=== PATIENT | female | born 1950 | race Caucasian/White ===

== ENCOUNTER 2019-05-21 23:59 | Emergency (ER) | payer MEDICARE, OTHER ==
--- NOTE | 2019-05-22 00:15 | ED ---
Syncope/Near Syncope - HPI Summary HPI Summary: This pt is a 68 Y/O F presenting to [facility] with a CC of a nosebleed and a syncopal episode. She states that she hit her face yesterday at 1930 during a fall where she did not lose consciousness. She states that she fell asleep for 4 -5 hours after the event. Today she was walking around and doing multiple errands. She states that her swelling around her L eye was reducing. She states that she had nausea throughout the day. Her nosebleed began prior to arrival and states that the bleeding would not stop. She states that her mouth hurts and is described as an ache. She also reports a headache that has been constant since her first fall that is rated a 4/10 in severity. She had a syncopal episode during admission to the Emergency department. Her episode was witnessed by hospital staff and EMS. Her syncope resolved by the time she was moved into an ER. She denies any vomiting, SOB, CP, visual changes, and fevers. She has no aggravating or alleviating factors. She states that she is currently on BP medications. She states that she does not take blood thinners. She states that she has a PMHx of HTN. She denies any alcohol or drugs today. - History Of Current Complaint Chief Complaint: EDSyncope Time Seen by Provider: 05/22/19 00:12 Hx Obtained From: Patient Onset/Duration: Sudden Onset, Resolved Timing: Frequency Of Episodes - 1 episode, resolved when moved into a room Context: Witnessed Activity At Onset: Other - standing Associated Head Trauma: Yes Aggravating Factor(s): Nothing Alleviating Factor(s): Nothing Associated Signs And Symptoms: Negative - vomiting, SOB, CP, visual changes, and fevers, Headache, Other - nausea - Allergies/Home Medications Allergies/Adverse Reactions: Allergies Allergy/AdvReac Type Severity Reaction Status Date / Time MS Morphine [Morphine] AdvReac hypotension Verified 05/22/19 00:06 Home Medications: Home Medications Acetaminophen TAB* [Tylenol TAB*] 650 mg PO Q4H PRN 03/04/13 [History Confirmed 05/22/19] Ibuprofen TAB* [Motrin TAB*] 400 mg PO Q6H PRN 03/04/13 [History Confirmed 05/21] Levothyroxine TAB* [Synthroid 25 MCG TAB*] 50 mcg PO 0800 03/04/13 [History Confirmed 05/22/19] lamoTRIgine TAB(*) [Lamictal TAB(*)] 100 mg PO BEDTIME 03/04/13 [History Confirmed 05/22/19] Bisoprolol/Hydrochlorothiazide [Bisoprolol-Hctz 10-6.25 mg Tab] 1 each PO DAILY 05/22/19 [History Confirmed 05/22/19] Valproic Acid 2 tab PO DAILY 05/22/19 [History Confirmed 05/22/19] PMH/Surg Hx/FS Hx/Imm Hx Previously Healthy: Yes Endocrine/Hematology History: Reports: Hx Thyroid Disease Denies: Hx Diabetes Cardiovascular History: Reports: Hx Hypertension Respiratory History: Denies: Hx Asthma, Hx Chronic Obstructive Pulmonary Disease (COPD) GI History: Denies: Hx Ulcer - Cancer History Hx Chemotherapy: No Hx Radiation Therapy: No - Surgical History Surgical History: Yes Surgery Procedure, Year, and Place: csection. hernia repair. microlaminectomy L5-s1. cervical fusion. right hand surgery fracture repair post fall - Immunization History Immunizations Up to Date: Yes Infectious Disease History: Unable to Obtain/Confirm Infectious Disease History: Denies: Hx Clostridium Difficile, Hx Hepatitis, Hx Human Immunodeficiency Virus (HIV), Hx of Known/Suspected MRSA, Hx Shingles, Hx Tuberculosis, Traveled Outside the [place] in Last 30 Days - Social History Occupation: Retired Lives: Alone Alcohol Use: Occasionally Hx Substance Use: No Substance Use Type: Reports: None Hx Tobacco Use: No Smoking Status (MU): Never Smoked Tobacco Review of Systems Negative: Fever Eyes: Other - bruising around L periorbital space Positive: Epistaxis, Dental Pain Negative: Chest Pain Negative: Shortness Of Breath Positive: Nausea. Negative: Vomiting Positive: Headache, Syncope All Other Systems Reviewed And Are Negative: Yes Physical Exam - Summary Physical Exam Summary: General: Well-developed, elderly female. No acute distress. Mildlt-ill appearing HEENT: Normocephalic, Atraumatic. no obvious acute bleeding Eyes: Conjuctiva normal, PERRL. Significant ecchymosis around the L eye and upper lip. Ears: TMs within normal limits. Nares: (-) discharge, Swollen erythematous nose with dried blood in the nares Oropharynx: Clear, mucous membranes moist, (-) exudates. Neck: Soft, FROM, (-) lymphadenopathy, (-) thyromegaly, (-) JVD. Cardiovascular: Normal sinus rhythm, (-) murmur. Lungs: decreased breath sounds bilaterally. Diffuse wheezes throughout, (-) rales, (-) rhonchi. Abdomen: Soft, non-tender, non-distended, (-) organomegaly, normal bowel sounds. Back: (-) CVA tenderness Extremities: No edema. Skin: Warm, dry, (-) rash. Neuro: Alert and oriented x3, no focal deficits. Psychiatric: Mood normal, affect normal. Triage Information Reviewed: Yes Vital Signs On Initial Exam: Initial Vitals Temp Pulse Resp BP Pulse Ox 95.3 F 57 21 154/94 97 05/22/19 00:03 05/22/19 00:03 05/22/19 00:03 05/22/19 00:03 05/22/19 00:03 Vital Signs Reviewed: Yes Procedures - Sedation Patient Received Moderate/Deep Sedation with Procedure: No Diagnostics - Vital Signs Vital Signs Temp Pulse Resp BP Pulse Ox 05/22/19 00:03 95.3 F 57 21 154/94 97 - Laboratory Result Diagrams: 05/22/19 00:35 05/22/19 00:35 Lab Statement: Any lab studies that have been ordered have been reviewed, and results considered in the medical decision making process. - CT Brain CT CT Interpretation Completed By: Radiologist Summary of CT Findings: 1. No acute intracranial hemorrhage or acute territorial type infarct. 2. There are periventricular foci of white matter hypodensity, likely. representing small vessel ischemic disease in a patient this age. 3. Mild atrophy. 4. Paranasal sinus disease. If the patient has facial trauma, a facial CT is. recommended. ED physician has reviewed this report. - EKG 0030 Cardiac Rate: Bradycardia - 53 BPM EKG Rhythm: Sinus Bradycardia ST Segment: Normal Ectopy: None Summary of EKG Findings: An EKG at 0028 reveals sinus bradycardia at 53 BPM, nml axis, nml intervals. No STEMI. No acute changes. Interpreted by Dr. Dodge at 0030 05/22/2019. Re-Evaluation - Re-Evaluation First Eval Re-Evaluation Time: 03:38 Change: Improved Comment: Syncope and epistaxis has resolved. Course/Dx Course Of Treatment: 68-year-old female presents from home with bloody nose. Patient states she fell last night. Sustained injury to the face. She states she tripped on something. Has ecchymosis under her left eye and upper mouth. She states tonight while she was doing errands she started developing nosebleed that will stop. She denies any dizziness or lightheadedness. Does have a mild headache. No visual changes. No nausea vomiting at this time. Shortly after arrival patient had an episode of syncope. after a Brief interval patient was able to respond after that. Patient has ecchymosis under the left eye upper mouth. Swelling in her nose. No active bleeding. No neurological deficits on exam. Normal strength and sensation in all extremities. Workup demonstrates a normal brain CT. Discharged home. Ice and Tylenol as needed. Follow-up up with PCP. Follow up sooner for any worsening symptoms. - Diagnoses Provider Diagnoses: Epistaxis, Syncope, Fall, Facial trauma Discharge ED - Sign-Out/Discharge Documenting (check all that apply): Patient Departure - discharge - Discharge Plan Condition: Good Disposition: HOME Patient Education Materials: Nosebleed (ED), Black Eye (ED), Syncope (ED), Fall Prevention for Older Adults (ED) Referrals: Emily Kovacs MD [Primary Care Provider] - 2 Days Additional Instructions: PLEASE FOLLOW UP WITH YOUR PRIMARY CARE PHYSICIAN IN 1-3 DAYS. RETURN TO THE EMERGENCY DEPARTMENT FOR ANY NEW OR WORSENING SYMPTOMS. - Billing Disposition and Condition Condition: GOOD Disposition: Home - Attestation Statements Document Initiated by Paulina: Yes Documenting Scribe: Jacky Mesa Provider For Whom Paulina is Documenting (Include Credential): Gisele Dodge MD Scribe Attestation: Jacky Pompa scrflako for Gisele Dodge MD on 05/23/19 at 0452. Scribe Documentation Reviewed: Yes Provider Attestation: The documentation as recorded by the Jacky schulte accurately reflects the service I personally performed and the decisions made by , Gisele Dodge MD Status of Scribe Document: Viewed
[2019-05-22 01:45] LABS: ABS Basophils 0.1 10^3/ul (0-0.2); ABS Eosinophils 0.1 10^3/ul (0-0.6); ABS Lymphocytes 2.1 10^3/ul (1.0-4.8); ABS Monocytes 0.5 10^3/ul (0-0.8); ABS Neutrophils 3.6 10^3/ul (1.5-7.7); Eosinophil % 2.1 %; Hematocrit 34 % (35-47); Hemoglobin 11.5 g/dL (12.0-16.0); Lymphocyte % 33.1 %; Mean Corpuscular HGB Conc 34 g/dL (31-36); Mean Corpuscular Hemoglobin 30 pg (27-31); Mean Corpuscular Volume 88 fL (80-97); Mean Platelet Volume 9.5 fL (7.4-10.4); Platelet Count 161 10^3/uL (150-450); Red Blood Count 3.85 10^6 /uL (3.70-4.87); Red Cell Distribution Width 14 % (10-15); White Blood Count 6.4 10^3/uL (3.5-10.8)
[2019-05-22 01:51] LABS: INR 1.01 (0.82-1.09)
[2019-05-22 02:06] LABS: ALT 13 U/L (7-52); AST 20 U/L (13-39); Albumin 3.7 g/dL (3.2-5.2); Albumin/Globulin Ratio 1.5 (1-3); Alkaline Phosphatase 38 U/L (34-104); Anion Gap 7 mmol/L (2-11); BUN/Creatinine Ratio 16.7 (8-20); Blood Urea Nitrogen 14 mg/dL (6-24); CO2 Carbon Dioxide 27 mmol/L (22-32); Calcium 9.2 mg/dL (8.6-10.3); Chloride 105 mmol/L (101-111); EGFR African American 81.8 (>60); EGFR Non-African American 67.6 (>60); Globulin 2.4 g/dL (2-4); Glucose 141 mg/dL (70-100); Potassium 3.4 mmol/L (3.5-5.0); Sodium 139 mmol/L (135-145); Total Protein 6.1 g/dL (6.4-8.9)
[2019-05-22 02:11] LABS: Alcohol < 10 mg/dL (<10)
--- OUTSIDE RECORDS SUMMARY | 2019-05-22 02:23 | XMS REPORT | Continuity of Care Document ---
:1950 External Reference #:[id number] Author Name Becca De Jesus N.P. 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 No Information Available Social History Type Date Description Comments Sex Unknown Tobacco Use Start: Unknown End: Former Cigarette Smoker ETOH Use Rarely consumes alcohol Recreational Drug Use Sporadically uses Marijuana Tobacco Use Start: Unknown End: Patient is a former smoker Smoking Status Reviewed: 05/11/19 Patient is a former smoker Exercise Type/Frequency Exercises rarely Allergies, Adverse Reactions, Alerts Active Allergies Reaction Severity Comments Date Morphine hypotension 03/14/2019 Medications Active Medications SIG Qnty Indications Ordering Date Provider Estradiol 1 tab per day x 2 90tabs Diane Nowak, 03/14/2019 10mcg Tablets weeks, then 1 tab [employer] twice weekly Levothyroxine Sodium 1 by mouth every Unknown day 112mcg Tablets Divalproex Sodium take 5 capsules Unknown 125mg (625mg) by mouth CSDR every morning;take 6 capsules (750mg) by mouth at bedtime Calcium 600/Magnesium every morning Unknown 300/Vitamin D 200-100-33.3mg-mg-Unit Capsules Vitamin D 1 by mouth every Unknown (Cholecalciferol) day 50mcg (2000 Ut) Capsules Ibuprofen one tablet by Unknown 600mg Tablets mouth q6 as needed pain Lamotrigine 1 po qhs for 1 wk Unknown 25mg Tablets then 2 qhs for 1 wk then 3 qhs for 1 wk then 4 qhs Multivitamin Adult 1 by mouth every Unknown day Tablets Bisoprolol Take One Tablet Unknown Fumarate/Hydrochloroth By Mouth Every iazide Day 5-6.25mg Tablets Immunizations Description No Information Available Vital Signs Date Vital Result Comment 05/11/2019 2:01pm Height 64 inches 5'4" Weight 159.00 lb Heart Rate 55 /min BP Systolic 136 mmHg BP Diastolic 82 mmHg Respiratory Rate 16 /min O2 % BldC Oximetry 99 % room air BMI (Body Mass Index) 27.3 kg/m2 03/14/2019 1:24pm Height 64 inches 5'4" Weight 158.00 lb Heart Rate 72 /min BP Systolic 159 mmHg BP Diastolic 92 mmHg O2 % BldC Oximetry 96 % BMI (Body Mass Index) 27.1 kg/m2 Last Menstrual Period [id number] Results Description No Information Available Procedures Description No Information Available Medical Devices Description No Information Available Encounters Type Date Location Provider Dx Diagnosis Office Visit 03/14/2019 [facility] Becca De Jesus N.P. R10.2 Pelvic and 1:00p [facility] perineal pain Assessments Date Code Description Provider 03/14/2019 R10.2 Pelvic and perineal pain Becca De Jesus N.P. Plan of Treatment No Information Available Functional Status Description No Information Available Mental Status Description No Information Available Referrals Refer to Reason for Referral Status Appt Date Belén Sy, PT, OCS Sent [address] [place] [address] [phone]
--- OUTSIDE RECORDS SUMMARY | 2019-05-22 02:23 | XMS REPORT | Summary of Care ---
:1950 Author Organization [facility] Address [address] [place] [address] Care Team Providers Name Role Phone Emily Kovacs Primary Care Provider Reason for Visit Reason Comments Other discuss medications, cardiology and UTI's (not symptomatic at this time ) - UA negative today Encounter Details Date Type Department Care Team Description 03/31/2019 Office Visit [facility] Emily Kovacs MD Long QT interval (Primary Dx); Medicine [address] Bipolar affective disorder, remission status unspecified ([facility]); [address] [place] [address] Atrophic vaginitis; [place] [address] Elevated blood sugar; [phone] History of UTI; Hypertension, unspecified type Allergies Active Allergy Reactions Severity Noted Date Comments Morphine Cardiac Reaction 03/06/2008 documented as of this encounter (statuses as of 03/31/2019) Medications Medication Sig Dispensed Refills Start Date End Date Status Htabpwr-Dcpelpxpa-Mtd Take by mouth DAILY. 0 Active moss D (CALCIUM 500) 500-250-200 MG-MG-UNIT Oral Tab Cholecalciferol 400 Units DAILY. 0 04/14/2017 Active (VITAMIN D3) 2000 units Oral Cap lamotrigine Take 2 Tabs by mouth 0 06/10/2018 Active (LAMICTAL) 25 MG Oral DAILY. TabIndications: Diarrhea, unspecified type levothyroxine TAKE 1 TABLET BEFORE 90 Tab 4 10/26/2018 Active (SYNTHROID) 112 MCG BREAKFAST Oral Tab ESTRADIOL VAGINAL 0.[address] 0.5 1 Tube 3 01/06/2019 Active MG/GM Vaginal Applicatorfuls into CreamIndications: the vagina EVERY 7 Atrophic vaginitis DAYS. Additional information Patient taking differently: 0.5 Applicatorful Vaginal PRN, Reported on 2019 9:13 AM divalproex sodium Take 2 Tabs by 60 Tab 0 02/16/2019 Active (DEPAKOTE) 250 MG Oral mouth TWICE Tab EC DAILY. Multiple TAKE 1 TABLET 90 Tab 4 03/28/2019 Active Vitamins-Minerals DAILY (THEREMS-M) Oral Tab ACETAMINOPHEN PO Take by mouth 0 Active NEEDED. bisoprolol-hydrochloro Take 1 Tab by 90 Tab 3 03/31/2019 03/30/19 Active thiazide (ZIAC) 5-6.25 mouth DAILY. 21 MG Oral Take 1 tablet TabIndications: daily. Hypertension, unspecified type ibuprofen (MOTRIN) 600 Take 1 Tab by 120 Tab 0 07/21/2012 03/31/19 Discontinued MG Oral mouth EVERY 20 (Patient stopped the TabIndications: SIX HOURS medication) Shoulder strain NEEDED for Pain. Multiple Vitamin Oral Take 1 Tab by 90 Tab 5 02/09/2018 03/31/19 Discontinued Tab mouth DAILY. 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 General patient education discussion including: obesity- related excess mortality and is managed by . Pain in joint, lower leg 06/24/2007 05/06/2012 Anxiety state, unspecified 03/31/2007 05/06/2012 Bipolar I disorder, single manic episode 03/31/2007 03/14/2015 documented as of this encounter (statuses as of 03/31/2019) Immunizations Name Administration Dates Next Due Influenza (IM) Preservative Free 01/12/2013, 02/11/2011, 12/30/2008 Influenza Virus Vaccine - Whole 12/17/2006 Influenza Virus Vaccine Pres Free 6-35 12/15/2009 Months TDAP Vaccine 06/19/2011 documented as of this encounter Social History Tobacco Use Types Packs/Day Years Used Date Former Smoker Cigarettes 0.1 20 Smokeless Tobacco: Never Used Comments: smokes 5 cigarettes per day on average Alcohol Use Drinks/Week oz/Week Comments Yes 0 Standard drinks or equivalent 0.0 socially Sex Assigned at Date Recorded Not on file Job Start Date Occupation Industry Not on file Not on file Not on file Travel History Travel Start Travel End No recent travel history available. documented as of this encounter Last Filed Vital Signs Vital Sign Reading Time Taken Comments Blood Pressure 148/104 03/31/2019 1:54 PM EST Pulse 89 03/31/2019 1:54 PM EST Temperature - - Respiratory Rate - - Oxygen Saturation 99% 03/31/2019 1:54 PM EST Inhaled Oxygen Concentration - - Weight 72.6 kg (160 lb) 03/31/2019 1:54 PM EST Height 160 cm (5' 3") 03/31/2019 1:54 PM EST Body Mass Index 28.34 03/31/2019 1:54 PM EST documented in this encounter Patient Instructions Patient InstructionsEmily Kovacs MD - 03/31/2019 1:40 PM ESTWill need repeat of blood sugar in 4-6 months to follow Today start blood pressure medication - Short interval Follow up - 3 weeks documented in this encounter Progress Notes Emily Kovacs MD - 03/31/2019 1:40 PM EST NAME:Lupis Cline 1950: 1950 E[place] Date: 03/31/2019 CC: Chief Complaint Patient presents with Other discuss medications, cardiology and UTI's (not symptomatic at this time) - UA negative today Lupis Cline is a 68-y.o. female 1. Seen by Dr Kumar for her possible long QT but this does not seem to be a problem Echo does not show significant problem - 2. Diastolic elevated consistently - ready to start blood pressure medication- 3. Stress today Trip in electric car - 4. Blood sugar borderline Lab Results Component Value Date GLYCO 6.3 (H) 03/29/2019 GLYCO 6.1 (H) 06/03/2018 GLYCO 6.1 (H) 09/10/2017 Discuss at next office visit! - In a sigala today- Current Outpatient Medications Medication Sig ACETAMINOPHEN PO Take by mouth NEEDED. bisoprolol-hydrochlorothiazide (ZIAC) 5-6.25 MG Oral Tab Take 1 Tab by mouth DAILY. Take 1 tablet daily. Eotzvvb-Qixxgeyze-Stliowl D (CALCIUM 500) 500-250-200 MG-MG-UNIT Oral Tab Take by mouth DAILY. Cholecalciferol (VITAMIN D3) 2000 units Oral Cap 400 Units DAILY. divalproex sodium (DEPAKOTE) 250 MG Oral Tab EC Take 2 Tabs by mouth TWICE DAILY. ESTRADIOL VAGINAL 0.1 MG/GM Vaginal Cream Place 0.5 Applicatorfuls into the vagina EVERY 7 DAYS. (Patient taking differently: Place 0.5 Applicatorfuls into the vagina NEEDED.) lamotrigine (LAMICTAL) 25 MG Oral Tab Take 2 Tabs by mouth DAILY. levothyroxine (SYNTHROID) 112 MCG Oral Tab TAKE 1 TABLET BEFORE BREAKFAST Multiple Vitamins-Minerals (THEREMS-M) Oral Tab TAKE 1 TABLET DAILY No current facility-administered medications for this visit. 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 No bruising/ bleeding. No neurological complaints . No insomnia.+ . Social History Tobacco Use Smoking status: Former Smoker Packs/day: 0.10 Years: 20.00 Pack years: 2.00 Types: Cigarettes Smokeless tobacco: Never Used Tobacco comment: smokes 5 cigarettes per day on average Substance Use Topics Alcohol use: Yes Alcohol/week: 0.0 standard drinks Comment: socially Drug use: No Results for orders placed or performed in visit on 03/31/19 URINE DIP MANUAL (AMB POCT) Result Value Ref Range URINE GLUCOSE (POCT) Negative Negative mg/dl URINE BILIRUBIN (POCT) Negative Negative Urine Ketones (POCT) Negative Negative URINE SPECIFIC GRAVITY (POCT) 1.015 1.005 - 1.030 URINE BLOOD (POCT) Negative Negative URINE PH (POCT) 7.0 5.0 - 8.0 URINE PROTEIN (POCT) Negative Negative mg/dl URINE UROBILINOGEN (POCT) 0.2 0.2 - 1.0 mg/dl URINE NITRITES (POCT) Negative Negative URINE LEUKOCYTES (POCT) Negative Negative Cells/uL OBJECTIVE: BP (!) 148/104 | Pulse 89 | Ht 5' 3" (1.6 m) | Wt 160 lb (72.6 kg) | SpO2 99 % | BMI 28.34 kg/m . A/P ICD-9-CM ICD-10-CM 1. Long QT interval 794.31 R94.31 2. Bipolar affective disorder, remission status unspecified (HCC) 296.80 F31.9 3. Atrophic vaginitis 627.3 N95.2 4. Elevated blood sugar 790.29 R73.9 5. History of UTI V13.02 Z87.440 URINE DIP MANUAL (AMB POCT) 6. Hypertension, unspecified type 401.9 I10 bisoprolol-hydrochlorothiazide (ZIAC ) 5-6.25 MG Oral Tab There are no Patient Instructions on file for this visit. AUTHOR: Emily Kovacs MD 14:37 03/31/2019 documented in this encounter Plan of Treatment Date Type Specialty Care Team Description 04/21/2019 Appointment Radiology 05/02/2019 Office Visit Cardiology Skye Pineda PA [address] [place] [address] [phone] Health Maintenance Due Date Last Done Comments MEDICARE ANNUAL WELLNESS 07/25/2017 07/25/2016, 07/25/2016 VISIT INFLUENZA VACCINE (#1) 2018 01/12/2013, 02/11/2011, 12/30/2008 DEPRESSION SCREENING 05/08/2019 05/07/2018 FALL RISK ASSESSMENT 05/08/2019 05/07/2018, 05/07/2018 LIPID DISORDER SCREENING 06/04/2019 06/03/2018, 09/10/2017, 07/15/2016, Additional history exists Colonoscopy 11/09/2019 11/08/2009, 11/08/2009 DIABETES SCREENING 03/29/2020 03/29/2019, 03/29/2019, 06/03/2018, Additional history exists PNEUMOCOCCAL 65+YRS (1 of 2 03/30/2020 Postponed from - PCV13) 07/21/2016 (Patient refused) ZOSTER IMMUNIZATION SERIES 03/31/2020 Postponed from (1 of 2) 07/21/2001 (Vaccine not available) Cologuard Screening 09/29/2020 09/29/2017 DTaP/Tdap/Td Vaccines (2 - 06/18/2021 06/19/2011 Tdap) OSTEOPOROSIS SCREENING 07/01/2028 07/01/2018, 07/04/2011 HEPATITIS C SCREENING Completed 10/27/2006 HEPATITIS A IMMUNIZATION Aged Out No longer eligible SERIES based on patient's age to complete this topic HPV IMMUNIZATION SERIES Aged Out No longer eligible based on patient's age to complete this topic MENINGOCOCCAL VACCINE IMM Aged Out No longer eligible based on patient's age to complete this topic documented as of this encounter Goals Goal Patient Goal Associated Recent Patient-Stated? Author Type Problems Progress Blood Pressure Blood Pressure 148/104 No Fermín, < 140/90 (03/31/2019 MD Emily 1:54 PM EST) Note: This is an individualized treatment (blood pressure) goal for Lupis Cline: Displayed above (on the left) is your goal for blood pressure control. Your most recent blood pressure is also shown above, on the right. You should try to achieve blood pressures that are lower than your goal listed above (on the left). Blood Pressure < 150/90 Blood Pressure 148/104 (03/31/2019 1:54 No Emily Kovacs MD PM EST) Note: This is an individualized treatment (blood pressure) goal for Lupis Cline: Displayed above (on the left) is your goal for blood pressure control. Your most recent blood pressure is also shown above, on the right. You should try to achieve blood pressures that are lower than your goal listed above (on the left). Depression screen (PHQ-9) total score < 5 Depression No Emily Kovacs MD Note: This is an individualized treatment (depression) goal for Lupis Cline: Displayed above is your goal for a depression screening (PHQ-9) score that would indicate good control of your depression. Glycohemoglobin A1c < 7.0 Diabetes 6.3 (03/29/2019 8:08 AM No Emily Kovacs MD EST) Note: This is an individualized treatment (diabetes control, HgbA1C) goal for Lupis Cline: Displayed above is your progress towards your HgbA1C goal. Your goal is shown above (on the left); your most recent HgbA1C is shown on the right. Note that lower numbers are better. Glycohemoglobin A1c < 9.0 Diabetes 6.3 (03/29/2019 8:08 AM No Emily Kovacs MD EST) Note: This is an individualized treatment (diabetes control, HgbA1C) goal for Lupis Cline: Displayed above is your progress towards your HgbA1C goal. Your goal is shown above (on the left); your most recent HgbA1C is shown on the right. Note that lower numbers are better. Keep a regular sleep schedule Lifestyle No Emily Kovacs MD Note: This is an individualized lifestyle goal for Lupis Cline: Please maintain a regular sleep schedule. This may help with some symptoms of depression. Keep immunizations current Lifestyle No Emily Kovacs MD Note: This is an individualized lifestyle goal for Lupis Cline: Please be sure to keep up-to-date on recommended immunizations. For example, this would include a yearly influenza vaccine. Immunization status can be seen by looking at the Health Maintenance sections of your [facility], Plan of Care, and any After Visit Summaries. Take all prescribed medications as directed Self-management Emily Hyman MD Note: This is an individualized self-management goal for Lupis Cline: Please take all prescribed medications as directed. 1. Do not skip doses. If you cannot afford your medications, talk with your doctor. 2. Use a pill reminder system such as a pill box if needed. Your pharmacist can help you with this. 3. Contact your Pharmacy 5 days before your medication runs out. If you cannot take your medications for any reasons, talk with your doctor. 4. Please bring all of your medication bottles and inhalers (or a list of all your medications/inhalers) with you to every visit. Potential barriers to meeting all of your care plan goals will continue to be addressed on an ongoing basis. documented as of this encounter Procedures Procedure Name Priority Date/Time Associated Diagnosis Comments URINE DIP MANUAL Routine 03/31/2019 2:03 PM History of UTI Results for this (AMB POCT) EST procedure are in the results section. documented in this encounter Results URINE DIP MANUAL (AMB POCT) (03/31/2019 2:03 PM EST) URINE GLUCOSE (POCT) Negative Negative mg/dl [facility] POCT URINE BILIRUBIN Negative Negative [facility] (POCT) POCT Urine Ketones (POCT) Negative Negative [facility] POCT URINE SPECIFIC 1.015 1.005 - 1.030 [facility] GRAVITY (POCT) POCT URINE BLOOD (POCT) Negative Negative [facility] POCT URINE PH (POCT) 7.0 5.0 - 8.0 [facility] POCT URINE PROTEIN (POCT) Negative Negative mg/dl [facility] POCT URINE UROBILINOGEN 0.2 0.2 - 1.0 mg/dl [facility] (POCT) POCT URINE NITRITES (POCT) Negative Negative [facility] POCT URINE LEUKOCYTES Negative Negative Cells/uL [facility] (POCT) POCT Specimen Urine - Urine specimen (specimen) Performing Organization Address City/State/Zipcode Phone Number [facility] [address] [place] [address] documented in this encounter Visit Diagnoses Diagnosis Long QT interval Nonspecific abnormal electrocardiogram (ECG) (EKG) Bipolar affective disorder, remission status unspecified (HCC) Atrophic vaginitis Postmenopausal atrophic vaginitis Elevated blood sugar Other abnormal glucose History of UTI Personal history of urinary (tract) infection Hypertension, unspecified type documented in this encounter Insurance Payer Benefit Plan / Subscriber ID Effective Dates Phone Address Type Group MEDICARE MEDICARE PART A & xxxxxxxxxxx 2016-Present Medicare B [facility] [place] [employer] xxxxxxxxx 2016-Present [place] Guarantor Name Account Type Relation to Date of Phone Billing Patient Address Lupis Cline Personal/Family 1950 [address] (Home) [facility] [phone] [place] [id number] (Work) documented as of this encounter
--- OUTSIDE RECORDS SUMMARY | 2019-05-22 02:23 | XMS REPORT | Summary of Care ---
:1950 Author Organization [facility] Address [address] [place] [address] Care Team Providers Name Role Phone Emily Kovacs Primary Care Provider Reason for Visit Reason Comments Follow Up 1 mo f/u HTN, patient would like to discuss medications and home BP monitoring. Encounter Details Date Type Department Care Team Description 05/02/2019 Office Visit Skye Ortega PA Essential hypertension (Primary Dx); Cardiology 1 [facility] Regional wall motion abnormality of heart [address] [facility] [place] [address] [place] [address] Allergies Active Allergy Reactions Severity Noted Date Comments Morphine Cardiac Reaction 03/06/2008 documented as of this encounter (statuses as of 05/02/2019) Medications Medication Sig Dispensed Refills Start Date End Date Status Cholecalciferol 400 Units DAILY. 0 04/14/2017 Active [...] vagina EVERY 7 Atrophic vaginitis DAYS. Additional Information Patient taking differently: 0.5 Applicatorful Vaginal PRN, [...] 1 tablet TabIndications: daily. Hypertension, unspecified type nicotine (NICORETTE Place 2 mg 0 Active STARTER KIT) 2 MG between lower Mouth/Throat Gum cheek and gum NEEDED for Smoking Cessation. nicotine transdermal Place 14 mg 0 Active patch-daily (NICODERM) onto skin 14 MG/24HR Transdermal DAILY. PATCH 24 HR Asjovul-Cnmcqneyl-Rhzz Take by mouth 0 05/02/19 Discontinued min D (CALCIUM 500) DAILY. 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 Overview: ELEVATED Hypothyroidism 03/31/2007 documented as of this encounter (statuses as of 05/02/2019) Resolved Problems Problem Noted Date Resolved Date [...] as of this encounter (statuses as of 05/02/2019) Immunizations Name Administration Dates Next Due Influenza (IM) Preservative Free 01/12/2013, 02/11/2011, 12/30/2008 Influenza Virus Vaccine - Whole 12/17/2006 Influenza Virus Vaccine Pres Free 6-35 12/15/2009 Months TDAP Vaccine 06/19/2011 documented as of this encounter Social History Tobacco Use Types Packs/Day Years Used Date Former Smoker Cigarettes 20 Quit: 04/09/2019 Smokeless Tobacco: Never Used Alcohol Use Drinks/Week oz/Week Comments Yes 0 Standard drinks or equivalent 0.0 socially Sex Assigned at Date Recorded Not on file documented as of this encounter Last Filed Vital Signs Vital Sign Reading Time Taken Comments Blood Pressure 128/84 05/02/2019 3:42 PM EST Pulse 68 05/02/2019 3:42 PM EST Temperature - - Respiratory Rate - - Oxygen Saturation 97% 05/02/2019 3:42 PM EST Inhaled Oxygen Concentration - - Weight 72.3 kg (159 lb 6.4 oz) 05/02/2019 3:42 PM EST Height - - Body Mass Index 28.24 04/25/2019 2:07 PM EST documented in this encounter Patient Instructions Patient InstructionskSye Pineda PA - 05/02/2019 3:40 PM ESTGeneral Instructions: ?? I Strongly recommended to take your medication regularly as prescribed and DO NOT stop any medications without consulting a physician. ?? Please follow a Low-salt, low carbohydrate diet. ?? Keep yourself physically active if you are able. ?? Try to do a moderate level exercise (Brisk walking), at least 150 minutes per week or 30-60 minutes a day for modest weight loss. ?? Always keep a watch on your blood pressure and cholesterol. Keep the blood pressure between <130/80 mmHg and LDL cholesterol level < 70mg/dl if you have a history of coronary artery disease, or <100 mg/dl if you do not ?? Please do not hesitate to call sooner than scheduled if there is a worsening of symptoms or development of new symptoms Follow up: ?? Follow up in 2 weeks after your CTA coronaries or sooner, if necessary. ?? Medication changes today: None ?? Bloodwork to be checked: Get your BMP checked in 1-2 weeks documented in this encounter Progress Notes Skye Pineda PA - 05/02/2019 3:40 PM EST [facility] Patient: Lupis Cline Date of : 1950 Date of Service: 05/02/2019 REFERRING PRACTITIONER: Syke Pineda PRIMARY CARE PROVIDER: Emily Kovacs Chief Complaint: Chief Complaint Patient presents with ? Follow Up 1 mo f/u HTN, patient would like to discuss medications and home BP monitoring. History of Present Illness: We had the pleasure of seeing Lupis Cline today. She is a 68-y.o.female with a PMH of Hypertension, bipolar disorder and QTc prolongation, who presents today for follow up. She presents today for follow up her hypertension and abnormal TTE. She has not gotten the CTA coronaries yet because she has not found a friend who can drive her to [place] and she does not like the idea of getting an IV. Otherwise, she is feeling well. She has no chest pain, shortness of breath, palpitations. Constitutional: Patient denies fever, febrile illness. Denies fatigue. Neurologic: Denies transient ischemic attack or cerebrovascular accident signs or symptoms. Denies syncope or presyncopal episodes. Cardiovascular: denies chest pain, denies palpations, denies lower extremity edema. Respiratory: denies shortness of breath, Denies PND, denies orthopnea. Gastrointestinal: Denies melena. Genitourinary: Denies hematuria Musculoskeletal: denies claudication. All other remaining systems are negative. Except that stated above in history of present illness Cardiac Studies: TTE 03/14/2019: Mild concentric LVH with Grade I diastolic dysfunction and upper normal left atrial size. Normal LV systolic function with possible RCA/Cx territory wall motion abnormalities, as described. Estimated LVEF 55-60%. Normal right heart size and RV systolic function. No structurally or hemodynamically significant valvular disease. No pericardial effusion. Mildly dilated ascending aorta (4.3cm). ? ? Patient Active Problem List Diagnosis ? HDL lipoprotein deficiency ? Hypothyroidism ? HTN (hypertension) ? Sensory hearing loss, bilateral ? Bipolar 1 disorder, depressed, mild (HCC) ? TMJ (temporomandibular joint disorder) ? Left knee pain ? Screen for colon cancer ? Blood clotting disorder (HCC) Past Medical History: Diagnosis Date ? Anxiety state, unspecified 03/31/2007 ? Bipolar I disorder, single manic episode, unspecified 03/31/2007 ? 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 Hepatitis B age 24 ? Postmenopausal ? Stress disorder, post traumatic 03/31/2007 ? Unspecified hypertensive heart disease ? Unspecified hypothyroidism 03/31/2007 Past Surgical History: Procedure Laterality Date ? CARPAL TUNNEL RELEASE 1998 3X W/ MICRO LAMINECTOMY IN 1999 ? SECTION NOS 1982 ? PA EXCISION OF NOSE 1989 ? PA REPAIR SLIDING INGUINAL HERNIA 1982 DUE TO ? PA REVISION OF LARYNX, UNSPECIFIED 1989 Allergies Allergen Reactions ? Morphine Cardiac Reaction Current Outpatient Medications Medication Sig ? ACETAMINOPHEN PO Take by mouth NEEDED. ? bisoprolol-hydrochlorothiazide (ZIAC) 5-6.25 MG Oral Tab Take 1 Tab by mouth DAILY. Take 1 tablet daily. ? Cholecalciferol (VITAMIN D3) 2000 units Oral Cap 400 Units DAILY. ? divalproex sodium (DEPAKOTE) 250 MG Oral Tab EC Take 2 Tabs by mouth TWICE DAILY. ? ESTRADIOL VAGINAL 0.1 MG/GM Vaginal Cream Place 0.5 Applicatorfuls into the vagina EVERY 7 DAYS. (Patient taking differently: Place 0.5 Applicatorfuls into the vagina NEEDED.) ? lamotrigine (LAMICTAL) 25 MG Oral Tab Take 2 Tabs by mouth DAILY. ? levothyroxine (SYNTHROID) 112 MCG Oral Tab TAKE 1 TABLET BEFORE BREAKFAST ? Multiple Vitamins-Minerals (THEREMS-M) Oral Tab TAKE 1 TABLET DAILY ? nicotine (NICORETTE STARTER KIT) 2 MG Mouth/Throat Gum Place 2 mg between lower cheek and gum NEEDED for Smoking Cessation. ? nicotine transdermal patch-daily (NICODERM) 14 MG/24HR Transdermal PATCH [address] 14 mg onto skin DAILY. No current facility-administered medications for this visit. Family History Problem Relation Age of Onset ? Macular Degeneration Mother ? Heart Mother Afib ? Psychiatry Father suicide ? Glaucoma No family history ? Blindness No family history ? Other Eye Problems No family history ? Diabetes No family history Social History Socioeconomic History ? Marital status: Spouse name: Not on file ? Number of children: Not on file ? Years of education: Not on file ? Highest education level: Not on file Occupational History ? Not on file Social Needs ? Financial resource strain: Not on file ? Food insecurity Worry: Not on file Inability: Not on file ? Transportation needs Medical: Not on file Non-medical: Not on file Tobacco Use ? Smoking status: Former Smoker Years: 20.00 Types: Cigarettes Last attempt to quit: 04/09/2019 Years since quittin.0 ? Smokeless tobacco: Never Used Substance and Sexual Activity ? Alcohol use: Yes Alcohol/week: 0.0 standard drinks Comment: socially ? Drug use: No ? Sexual activity: Yes Partners: Male Lifestyle ? Physical activity Days per week: Not on file Minutes per session: Not on file ? Stress: Not on file Relationships ? Social connections Talks on phone: Not on file Gets together: Not on file Attends worship service: Not on file Active member of club or organization: Not on file Attends meetings of clubs or organizations: Not on file Relationship status: Not on file ? Intimate partner violence Fear of current or ex partner: Not on file Emotionally abused: Not on file Physically abused: Not on file Forced sexual activity: Not on file Other Topics Concern ? Back Care Not Asked ? Bike Helmet Not Asked ? Blood Transfusions Not Asked ? Caffeine Concern Not Asked ? Exercise Not Asked ? Hobby Hazards Not Asked ? International Travel Not Asked ? Service Not Asked ? Occupational Exposure Not Asked ? Seat Belt Not Asked ? Self-Exams Not Asked ? Sleep Concern Not Asked ? Special Diet Not Asked ? Stress Concern Not Asked ? 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 General: Well nourished, alert 68-y.o. female in NAD HEENT: anicteric, MMM, no E/E OP, conj pink Neck: No carotid bruits CV: RRR, normal s1/s2, no appreciable murmurs, rubs, or gallops Pulm: CTA bilaterally without wheezes, rhonchi, or rales. No increased work of breathing. Abd: soft, NT, ND, +BS. No appreciable pulsatile masses or bruits. Ext: No lower extremity edema, no cyanosis, no cords, redness, or warmth, 2+ distal pulses Neuro: no gross focal deficits Skin: no visible lesions Labs: Lab Results Component Value Date NA 137 03/29/2019 K 4.0 03/29/2019 CL 103 03/29/2019 CO2 25 03/29/2019 GLUCOSE 97 03/29/2019 BUN 23 (H) 03/29/2019 CREATININE 0.8 03/29/2019 CALCIUM 9.5 03/29/2019 TP 7.5 03/29/2019 ALBUMIN 4.2 03/29/2019 AST 37 03/29/2019 ALT 17 03/29/2019 ALK 49 03/29/2019 TBILI 0.3 03/29/2019 EGFR >60 03/29/2019 No results found for: BNP Lab Results Component Value Date CHOL 188 09/10/2017 TRIG 84 09/10/2017 HDL 68 09/10/2017 LDL 103 (H) 09/10/2017 LDLHDLRATIO 1.5 09/10/2017 CHOLHDLRATIO 2.8 09/10/2017 Assessment & Plan: Lupis Cline is a 68-y.o. female with ICD-9-CM ICD-10-CM 1. Essential hypertension 401.9 I10 BASIC METABOLIC PANEL 2. Regional wall motion abnormality of heart 793.2 R93.1 1. Atypical Chest Discomfort and regional wall motion abnormalities on recent TTE: Blood pressure was elevated (180/118) when she presented for her stress echocardiogram, and therefore the exercise portion of her exam was cancelled. She cancelled her CTA coronaries because of transportation issues. We had a long discussion about why a CTA coronaries is important given her regional wall motionabnormalities on recent TTE, even if she is currently chest pain free. Her main concern is getting an IV placed and transportation issues. We discussed alternative testing modalities that could be donein [place], now that her blood pressure is better controlled. I mentioned that a Nuclear Stress Test would definitely entail an IV, and stress echocardiogram may also require one. She would like to pursue a CTA coronaries given it's sensitivity and thinks she will be able toarrange a ride and will be okay with getting an IV. Kidney function has been normal in the past. Will re-check it now that she is on HCTZ. ? 2. Hypertension: Today, her blood pressure is well controlled on Bisoprolol- HCTZ 5-6.125. I encouraged patient to check her blood pressure at home, and let us know if it is persistently>130/80. Again, counseled patient on a low sodium diet. ? ? 3. QT Prolongation: Was borderline prolonged on 01/10/2019, when Dr. Kumar measured it manually (465ms, upper threshold is 465). She should use caution and avoid being prescribed QT-prolonging medications (such as antipsychotics, quinolones, macrolides, etc). Clonidine typically does not affect that QT and that it should be safe for her to try a low dose in the evening for psychiatric reasons. Thank you for allowing me to participate in the care of Lupis Cline. We will plan on f/u in ouroffice in 1 week after her CTA coronaries or sooner prn. If you have any questions or concerns please feel free to call our office. DOUGL[place] Stephen, 05/02/2019, 16:18 documented in this encounter Plan of Treatment Date Type Specialty Care Team Description 05/16/2019 Lab Internal Medicine 10/24/2019 Office Visit Internal Medicine Emily Kovacs MD [address] [place] [address] [phone] Name Type Priority Associated Diagnoses Order Schedule BASIC METABOLIC PANEL Lab Routine Essential hypertension Expected: 2019 (Approximate), Expires: 05/02/2020 Health Maintenance Due Date Last Done Comments INFLUENZA VACCINE (#1) 2018 01/12/2013, 02/11/2011, 12/30/2008 [...] (1 of 2) 07/21/2001 (Vaccine not available) MEDICARE ANNUAL WELLNESS 04/25/2020 07/25/2016, 07/25/2016 Postponed from VISIT 07/25/2017 (Other) Cologuard Screening 09/29/2020 09/29/2017 DTaP/Tdap/Td Vaccines (2 [...] Type Problems Progress Blood Pressure Blood Pressure 128/84 No [place], < 140/90 (05/02/2019 MD Emily 3:42 PM EST) Note: This is an individualized treatment (blood pressure) goal for Lupis Cline: Displayed above (on the left) is your goal for blood pressure control. Your most recent blood pressure is also shown above, on the right. You should try to achieve blood pressures that are lower than your goal listed above (on the left). Blood Pressure < 150/90 Blood Pressure 128/84 (05/02/2019 3:42 No Emily Kovacs MD PM EST) Note: [...] total score < 5 Depression No Emily oKvacs MD Note: This is an individualized treatment [...] Take all prescribed medications as directed Self-management No Emily Kovacs MD Note: This is an individualized self-management [...] ongoing basis. documented as of this encounter Results Not on filedocumented in this encounter Visit Diagnoses Diagnosis Essential hypertension Unspecified essential hypertension Regional wall motion abnormality of heart Nonspecific (abnormal) findings on radiological and other examination of other intrathoracic organs documented in this encounter Insurance Payer Benefit Plan / Subscriber ID Effective Dates Phone Address Type Group MEDICARE MEDICARE PART A & [id number] 2016-Present [place] [employer] [place] [id number] 2016-Present [place] Guarantor Name Account Type Relation to Date of Phone Billing Patient Address Lupis Cline Personal/Family 1950 [address] (Home) [facility] [phone] [place] [address] (Work) documented as of this encounter
--- OUTSIDE RECORDS SUMMARY | 2019-05-22 02:23 | XMS REPORT | Summary of Care ---
:1950 Author Organization [facility] Address [address] [place] [address] Care Team Providers Name Role Phone Emily Kovacs Primary Care Provider Reason for Visit Reason Comments Follow Up 3 week follow up (long QT interval) Hypertension Hypothyroidism Bipolar Encounter Details Date Type Department Care Team Description 04/25/2019 Office Visit [place] [facility] Emily Kovacs MD Hypertension, unspecified type (Primary Dx); Medicine [address] Elevated blood sugar [address] [place] [address] [place] [address] [phone] Allergies Active Allergy Reactions Severity Noted Date Comments Morphine Cardiac Reaction 03/06/2008 documented as of this encounter (statuses as of 04/25/2019) Medications Medication Sig Dispensed Refills Start Date End Date Status Mpieosr-Ujrohpnrr-Nkv Take by mouth DAILY. 0 Active moss [...] AM divalproex sodium Take 2 Tabs by mouth 60 Tab 0 02/16/2019 Active (DEPAKOTE) 250 MG Oral Tab TWICE DAILY. EC Multiple Vitamins-Minerals TAKE 1 TABLET DAILY 90 Tab 4 03/28/2019 Active (THEREMS-M) Oral Tab ACETAMINOPHEN PO Take by mouth 0 Active NEEDED. bisoprolol-hydrochlorothiaz Take 1 Tab by mouth 90 Tab 3 03/31/20192020 Active brandon (ZIAC) 5-6.25 MG Oral DAILY. Take 1 tablet TabIndications: daily. Hypertension, unspecified type nicotine (N[facility] [employer] Place 2 mg between 0 Active KIT) 2 MG Mouth/Throat Gum lower cheek and gum NEEDED for Smoking Cessation. 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 Overview: ELEVATED Hypothyroidism 03/31/2007 documented as of this encounter (statuses as of 04/25/2019) Resolved Problems Problem Noted Date Resolved Date [...] as of this encounter (statuses as of 04/25/2019) Immunizations Name Administration Dates Next Due Influenza [...] Sign Reading Time Taken Comments Blood Pressure 132/82 04/25/2019 2:15 PM EST Pulse 95 04/25/2019 2:07 PM EST Temperature 37 04/25/2019 2:07 PM EST C (98.6 F) Respiratory Rate - - Oxygen Saturation 97% 04/25/2019 2:07 PM EST Inhaled Oxygen Concentration - - Weight 73 kg (160 lb 14.4 oz) 04/25/2019 2:07 PM EST Height 160 cm (5' 3") 04/25/2019 2:07 PM EST Body Mass Index 28.5 04/25/2019 2:07 PM EST documented in this encounter Patient Instructions Patient InstructionsEmily Kovacs MD - 04/25/2019 2:00 PM ESTWeight loss is in the calories Most important technique - WRITE IT DOWN Etools - Free websites loseit Fatsecret Myfitnesspal Sparkpeople fooducate Multiple effective diets- I favor the low carb diet- Cut out bread/ rice/ potatoes -etc. Eat meals with lean protein (meat/ fish/ chicken/ low fat cheese) and salad- Fruit is good but in moderation No fruit juice or sweetened sodas/ drinks- Dr Foreign Spencer - Gema - Clark Talk - Intermittent fasting - The Obesity Code - documented in this encounter Progress Notes Emily Kovacs MD - 04/25/2019 2:00 PM EST NAME:Lupis Cline 1950: 1950 ENC Date: 04/25/2019 CC: Chief Complaint Patient presents with ? Follow Up 3 week follow up (long QT interval) ? Hypertension ? Hypothyroidism ? Bipolar Lupis Cline is a 68-y.o. female ? 1.. Diastolic elevated consistently - ready to start blood pressure medication- Blood pressure today - ? ? 2 Blood sugar borderline Current Outpatient Medications Medication Sig ? ACETAMINOPHEN PO Take by mouth NEEDED. ? bisoprolol-hydrochlorothiazide (ZIAC) 5-6.25 MG Oral Tab Take 1 Tab by mouth DAILY. Take 1 tablet daily. ? Idoktun-Gevmaxquf-Rfcgott D (CALCIUM 500) 500-250-200 MG-MG-UNIT Oral Tab Take by mouth DAILY. ? Cholecalciferol (VITAMIN D3) 2000 units Oral [...] cheek and gum NEEDED for Smoking Cessation. No current facility-administered medications for this visit. Patient Active Problem List Diagnosis Date Noted ? Blood clotting disorder (HCC) 12/03/2018 ? Screen for colon cancer 06/10/2018 cologuard -2017 ? Left knee pain 06/03/2016 ? TMJ (temporomandibular joint disorder) 03/14/2015 Being treated by dentist ? Bipolar 1 disorder, depressed, mild (HCC) 12/08/2014 ? Sensory hearing loss, bilateral 10/26/2008 ? HTN (hypertension) 06/07/2007 ? 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 Hypothyroidism 03/31/2007 Family History Problem Relation Age of Onset ? Macular Degeneration Mother ? Heart Mother Afib ? Psychiatry Father suicide ? Glaucoma No family history ? Blindness No family history ? Other Eye Problems No family history ? Diabetes No family history No cardiopulmonary symptoms No upper or lower GI complaints No urinary tract symptoms. No bruising/ bleeding. No neurological complaints . No insomnia.+ . Social History Tobacco Use ? Smoking status: Former Smoker Packs/day: 0.10 Years: 20.00 Pack years: 2.00 Types: Cigarettes ? Smokeless tobacco: Never Used ? Tobacco comment: smokes 5 cigarettes per day on average Substance Use Topics ? Alcohol use: Yes Alcohol/week: 0.0 standard drinks Comment: socially ? Drug use: No . Glycohemoglobin A1C Date/Time Value Ref Range Status 03/29/2019 08:08 AM 6.3 (H) <=5.6 % Final Comment: Normal*: <=5.6% Pre Diabetes* Risk: 5.7-6.4% Diabetes* Risk: >=6.5% Glycemic Goals for Adult Diabetes*: <7.0% *(Adult Ranges)[place] [employer], Standards of Medical Care in Diabetes, 2018 02/26/2013 09:13 AM 6.2 (H) <6.0 % Final TSH Date/Time Value Ref Range Status 03/29/2019 08:08 AM 2.38 0.47 - 4.68 uIu/ml Final 05/20/2013 10:02 AM 18.50 (H) 0.32 - 5.00 uIu/ml Final CBC Lab Results Component Value Date WBC 6.43 03/29/2019 HGB 12.9 03/29/2019 HCT 40.6 03/29/2019 PLAT 197 03/29/2019 CMP Lab Results Component Value Date NA 137 03/29/2019 K 4.0 03/29/2019 CL 103 03/29/2019 CO2 25 03/29/2019 GLUCOSE 97 03/29/2019 BUN 23 (H) 03/29/2019 CREATININE 0.8 03/29/2019 CALCIUM 9.5 03/29/2019 TP 7.5 03/29/2019 ALBUMIN 4.2 03/29/2019 AST 37 03/29/2019 ALT 17 03/29/2019 ALK 49 03/29/2019 TBILI 0.3 03/29/2019 EGFR >60 03/29/2019 BMP Lab Results Component Value Date NA 137 03/29/2019 K 4.0 03/29/2019 CL 103 03/29/2019 CO2 25 03/29/2019 GLUCOSE 97 03/29/2019 BUN 23 (H) 03/29/2019 CREATININE 0.8 03/29/2019 CALCIUM 9.5 03/29/2019 EGFR >60 03/29/2019 Lipid Lab Results Component Value Date CHOL 188 09/10/2017 TRIG 84 09/10/2017 HDL 68 09/10/2017 LDL 103 (H) 09/10/2017 LDLHDLRATIO 1.5 09/10/2017 CHOLHDLRATIO 2.8 09/10/2017 LDL No results found for: LDL OBJECTIVE: BP 132/82 | Pulse 95 | Temp 98.6 F (37 C) | Ht 5' 3" (1.6 m) | Wt 160 lb 14.4 oz (73 kg) | SpO2 97% | BMI 28.50 kg/m . Heent neg Neck no JVD, thyromegaly or bruit Lungs Clear CV rrr Abd soft, nontender, no organomegaly Ext no edema; no lesions; pulses intact Neuro: intellect intact ; motor including gait unremarkable A/P ICD-9-CM ICD-10-CM 1. Hypertension, unspecified type 401.9 I10 2. Elevated blood sugar 790.29 R73.9 Patient Instructions Weight loss is in the calories Most important technique - WRITE IT DOWN Etools - Free websites loseit Fatsecret Myfitnesspal Sparkpeople fooducate Multiple effective diets- I favor the low carb diet- Cut out bread/ rice/ potatoes -etc. Eat meals with lean protein (meat/ fish/ chicken/ low fat cheese) and salad- Fruit is good but in moderation No fruit juice or sweetened sodas/ drinks- Dr Foreign Spencer - Gema - Clark Talk - Intermittent fasting - The Obesity Code - AUTHOR: Emily Kovacs MD 14:43 04/25/2019 documented in this encounter Plan of Treatment Date Type Specialty Care Team Description 05/02/2019 Office Visit Cardiology Skye Pineda PA [address] [place] [address] Health Maintenance Due Date Last Done Comments [...] Type Problems Progress Blood Pressure Blood Pressure 132/82 No Fermín, < 140/90 (04/25/2019 MD Emily 2:15 PM EST) Note: This is an individualized treatment (blood pressure) goal for Lupis Cline: Displayed above (on the left) is your goal for blood pressure control. Your most recent blood pressure is also shown above, on the right. You should try to achieve blood pressures that are lower than your goal listed above (on the left). Blood Pressure < 150/90 Blood Pressure 132/82 (04/25/2019 2:15 No Emily Kovacs MD PM EST) Note: [...] filedocumented in this encounter Visit Diagnoses Diagnosis Hypertension, unspecified type Elevated blood sugar Other abnormal glucose documented in this encounter Insurance Payer Benefit Plan / Subscriber ID Effective Dates Phone Address Type Group MEDICARE MEDICARE PART A & [id number] 2016-Present Medicare B [facility] [id number] 2016-Present [place] Guarantor Name Account Type Relation to Date of Phone Billing Patient Address Lupis Cline Personal/Family 1950 [address] (Home) [place] [phone] [place] [address] (Work) documented as of this encounter
--- OUTSIDE RECORDS SUMMARY | 2019-05-22 02:23 | XMS REPORT | Summary of Care ---
:1950 Author Organization [facility] Address [address] [place] [address] Care Team Providers Name Role Phone TrayEmily grover Primary Care Provider Reason for Referral MRI/CAT/PET Scan (Routine) Status Reason Specialty Diagnoses / Procedures Referred By Referred To Contact Contact Authorized Diagnoses Chest pain, unspecified type Skye Pineda PA Procedures CT CHEST HEART CORONARY ANGIOGRAPHY W CALCIFICATION [address] [place] [address] Reason for Visit Reason Comments Follow Up f/u BP and Echo Results 03/14/2019. Patient reports nosebleed last night, some chest pinching sensation after coffee this AM, relieved with rest. Encounter Details Date Type Department Care Team Description 03/28/2019 Office Visit Skye Ortega PA Essential hypertension (Primary Dx); Cardiology [address] Chest pain, unspecified type; [address] [facility] [place] [address] Dyslipidemia; [place] [address] Other specified hypothyroidism [phone] Allergies Active Allergy Reactions Severity Noted Date Comments Morphine Cardiac Reaction 03/06/2008 documented as of this encounter (statuses as of 03/28/2019) Medications Medication Sig Dispensed Refills Start Date End Date Status Fisizcp-Zgvklspjs-Arr Take by mouth DAILY. 0 Active moss D (CALCIUM 500) 500-250-200 MG-MG-UNIT Oral Tab ibuprofen (MOTRIN) Take 1 Tab by mouth 120 Tab 0 07/21/2012 Active 600 MG Oral EVERY SIX HOURS TabIndications: NEEDED for Pain. Shoulder strain Cholecalciferol 400 Units DAILY. 0 04/14/2017 Active (VITAMIN D3) 2000 units Oral Cap Multiple Vitamin Oral Take 1 Tab by mouth 90 Tab 5 02/09/2018 Active Tab DAILY. lamotrigine Take 2 Tabs by mouth 0 [...] Reported on 2019 9:13 AM divalproex sodium (DEPAKOTE) 250 Take 2 Tabs by mouth 60 Tab 0 02/16/2019 Active MG Oral Tab EC TWICE DAILY. ACETAMINOPHEN PO Take by mouth 0 Active NEEDED. 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 Overview: ELEVATED Hypothyroidism 03/31/2007 documented as of this encounter (statuses as of 03/28/2019) Resolved Problems Problem Noted Date Resolved Date [...] as of this encounter (statuses as of 03/28/2019) Immunizations Name Administration Dates Next Due Influenza [...] Sign Reading Time Taken Comments Blood Pressure 144/98 03/28/2019 9:10 AM EST Pulse 88 03/28/2019 9:10 AM EST Temperature - - Respiratory Rate - - Oxygen Saturation 98% 03/28/2019 9:10 AM EST Inhaled Oxygen Concentration - - Weight 72.4 kg (159 lb 9.6 oz) 03/28/2019 9:10 AM EST Height - - Body Mass Index 28.27 01/10/2019 2:11 PM EST documented in this encounter Patient Instructions Patient InstructionsSkye Pineda PA - 03/28/2019 9:00 AM EST Start your Clonidine. Send me a message on [employer] with your blood pressure readings Get your blood work checked tomorrow Schedule a CTA coronaries Follow up with me in 1 month documented in this encounter Progress Notes Skye Pineda PA - 03/28/2019 9:00 AM EST [facility] Cardiology Note Patient: Lupis Cline Date of : 1950 Date of Service: 03/28/2019 REFERRING PRACTITIONER: Jim Kumar PRIMARY CARE PROVIDER: Emily Kovacs Chief Complaint: Chief Complaint Patient presents with Follow Up f/u BP and Echo Results 03/14/2019. Patient reports nosebleed last night, some chest pinching sensation after coffee this AM, relieved with rest. History of Present Illness: We had the pleasure of seeing Lupis Cline today. She is a 68-y.o.female with a PMH of Hypertension, bipolar disorder and QTc prolongation, who presents today for follow up. She has been monitoring her blood pressure at home and it has been mostly in the 140s. She has an Rxfor clonidine from her psychiatrist, but has not picked it up yet. She was supposed to have a stress echocardiogram done for atypical chest pain, but it was aborted 2/2 hypertension on arrival. She says when she got to the test, it was "not what she expected" and it made her feel very anxious. Constitutional: Patient denies fever, febrile illness. Denies fatigue. Neurologic: Denies transient ischemic attack or cerebrovascular accident signs or symptoms. Denies syncope or presyncopal episodes. Cardiovascular: non-anginal chest pain, denies palpations, denies lower extremity [...] pericardial effusion. Mildly dilated ascending aorta (4.3cm). 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 Zfraziy-Vxquaiiid-Yxbdtli D (CALCIUM 500) 500-250-200 MG-MG-UNIT Oral Tab Take by mouth DAILY. Cholecalciferol (VITAMIN D3) 2000 units Oral Cap 400 Units DAILY. divalproex sodium (DEPAKOTE) 250 MG Oral Tab EC Take 2 Tabs by mouth TWICE DAILY. ESTRADIOL VAGINAL 0.1 MG/GM Vaginal Cream Place 0.5 Applicatorfuls into the vagina EVERY 7 DAYS. (Patient taking differently: Place 0.5 Applicatorfuls into the vagina NEEDED.) ibuprofen (MOTRIN) 600 MG Oral Tab Take 1 Tab by mouth EVERY SIX HOURS NEEDED for Pain. lamotrigine (LAMICTAL) 25 MG Oral Tab Take 2 Tabs by mouth DAILY. levothyroxine (SYNTHROID) 112 MCG Oral Tab TAKE 1 TABLET BEFORE BREAKFAST Multiple Vitamin Oral Tab Take 1 Tab by mouth DAILY. No current facility-administered medications for this visit. Family History Problem Relation Age of Onset Macular Degeneration Mother Heart Mother Afib Psychiatry Father suicide Glaucoma No family history Blindness No family history Other Eye Problems No family history Diabetes No family history Social History Socioeconomic History Marital status: Spouse name: Not on file Number of children: Not on file Years of education: Not on file Highest education level: Not on file Occupational History Not on file Social Needs Financial resource strain: Not on file Food insecurity Worry: Not on file Inability: Not on file Transportation needs Medical: Not on file Non-medical: Not on file Tobacco Use Smoking status: Former Smoker Packs/day: 0.10 Years: 20.00 Pack years: 2.00 Types: Cigarettes Smokeless tobacco: Never Used Tobacco comment: smokes 5 cigarettes per day on average Substance and Sexual Activity Alcohol use: Yes Alcohol/week: 0.0 standard drinks Comment: socially Drug use: No Sexual activity: Yes Partners: Male Lifestyle Physical activity Days per week: Not on file Minutes per session: Not on file Stress: Not on file Relationships Social connections Talks on phone: Not on file Gets together: Not on file Attends anabaptist service: Not on file Active member of club or organization: Not on file Attends meetings of clubs or organizations: Not on file Relationship status: Not on file Intimate partner violence Fear of current or ex partner: Not on file Emotionally abused: Not on file Physically abused: Not on file Forced sexual activity: Not on file Other Topics Concern Back Care Not Asked Bike Helmet Not Asked Blood Transfusions Not Asked Caffeine Concern Not Asked Exercise Not Asked Hobby Hazards Not Asked International Travel Not Asked Service Not Asked Occupational Exposure Not Asked Seat Belt Not Asked Self-Exams Not Asked Sleep Concern Not Asked Special Diet Not Asked Stress Concern Not Asked Weight Concern Not Asked Social History 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 General: Well nourished, alert 68-y.o. female in NAD HEENT: anicteric, MMM, no E/E OP, conj pink Neck: No carotid bruits CV: RRR, normal s1/s2, +diatolic murmur at RSB Pulm: CTA bilaterally without wheezes, rhonchi, or rales. No increased work of breathing. Abd: soft, NT, ND, +BS. No appreciable pulsatile masses or bruits. Ext: No lower extremity edema, no cyanosis, no cords, redness, or warmth, 2+ distal pulses Neuro: no gross focal deficits Skin: no visible lesions Labs: Lab Results Component Value Date NA 139 06/03/2018 K 3.8 06/03/2018 CL 105 06/03/2018 CO2 25 06/03/2018 GLUCOSE 100 (H) 06/03/2018 BUN 17 06/03/2018 CREATININE 0.7 06/03/2018 CALCIUM 9.1 06/03/2018 TP 7.5 08/12/2018 ALBUMIN 4.4 08/12/2018 AST 45 08/12/2018 ALT 20 08/12/2018 ALK 49 08/12/2018 TBILI 0.4 08/12/2018 EGFR >60 06/03/2018 No results found for: BNP Lab Results Component Value Date CHOL 188 09/10/2017 TRIG 84 09/10/2017 HDL 68 09/10/2017 LDL 103 (H) 09/10/2017 LDLHDLRATIO 1.5 09/10/2017 CHOLHDLRATIO 2.8 09/10/2017 Assessment & Plan: Lupis Cline is a 68-y.o. female with ICD-9-CM ICD-10-CM 1. Essential hypertension 401.9 I10 2. Chest pain, unspecified type 786.[address] CHEST HEART CORONARY ANGIOGRAPHY W CALCIFICATION 3. Dyslipidemia 272.4 E78.5 4. Other specified hypothyroidism 244.8 E03.8 1. Atypical Chest Discomfort: Blood pressure was elevated (180/118) when she presented for her stress echocardiogram, and therefore the exercise portion of her exam was cancelled. Will pursue a CTA coronaries, as discussed with with Dr. Kumar. Kidney function has been normal in the past. She is getting checked tomorrow from Dr. Kovacs's order. 2. Hypertension: Today, her blood pressure is not well controlled ? She is not taking any anti-hypertensives. Will Hold off on starting new medications, because she plans on starting Clonidine as prescribed by her psychiatrist. Again, explained to patient that clonidine is safe in patients with prolonged QT. ? I encouraged patient to check her blood pressure at home, and let us know if it is persistently >130/80. ? Again, counseled patient on a low sodium diet. 3. QT Prolongation: Was borderline prolonged on [...] plan on f/u in ouroffice in 1 month for blood pressure check and to review results of CTA or sooner prn. If you have any questions or concerns please feel free to call our office. [place] Stephen, 03/28/2019, 10:14 documented in this encounter Plan of Treatment Date Type Specialty Care Team Description 03/29/2019 Lab Internal Medicine 03/31/2019 Office Visit Internal Medicine Emily Kovacs MD [address] [place] [address] [phone] 04/21/2019 Appointment Radiology 05/02/2019 Office Visit Cardiology Skye Pineda PA [address] [address] Name Type Priority Associated Diagnoses Order Schedule CT CHEST HEART CORONARY Imaging Routine Chest pain, unspecified Expected: ANGIOGRAPHY W type 03/28/2019, Expires: CALCIFICATION 03/27/2020 Health Maintenance Due Date Last Done Comments ZOSTER IMMUNIZATION SERIES 07/21/2001 (1 of 2) PNEUMOCOCCAL 65+YRS (1 of 2 07/21/2016 - PCV13) MEDICARE ANNUAL WELLNESS 07/25/2017 07/25/2016, 07/25/2016 VISIT INFLUENZA VACCINE (#1) 2018 01/12/2013, 02/11/2011, 12/30/2008 DEPRESSION SCREENING 05/08/2019 05/07/2018 FALL RISK ASSESSMENT 05/08/2019 05/07/2018, 05/07/2018 DIABETES SCREENING 06/04/2019 06/03/2018, 06/03/2018, 09/10/2017, Additional history exists LIPID DISORDER SCREENING 06/04/2019 06/03/2018, 09/10/2017, 07/15/2016, Additional history exists Colonoscopy 11/09/2019 11/08/2009, 11/08/2009 Cologuard Screening 09/29/2020 09/29/2017 DTaP/Tdap/Td Vaccines (2 [...] Type Problems Progress Blood Pressure Blood Pressure 144/98 No Fermín, < 140/90 (03/28/2019 MD Emily 9:10 AM EST) Note: This is an individualized treatment (blood pressure) goal for Lupis Cline: Displayed above (on the left) is your goal for blood pressure control. Your most recent blood pressure is also shown above, on the right. You should try to achieve blood pressures that are lower than your goal listed above (on the left). Blood Pressure < 150/90 Blood Pressure 144/98 (03/28/2019 9:10 No Emily Kovacs MD AM EST) Note: This is an individualized treatment [...] your depression. Glycohemoglobin A1c < 7.0 Diabetes 6.1 (06/03/2018 9:22 AM No Emily Kovacs MD EDT) Note: This is an individualized treatment (diabetes control, HgbA1C) goal for Lupis Cline: Displayed above is your progress towards your HgbA1C goal. Your goal is shown above (on the left); your most recent HgbA1C is shown on the right. Note that lower numbers are better. Glycohemoglobin A1c < 9.0 Diabetes 6.1 (06/03/2018 9:22 AM No Emily Kovacs MD EDT) Note: This is an individualized treatment (diabetes control, HgbA1C) goal for Lupis Cline: Displayed above is your progress towards your HgbA1C goal. Your goal is shown above (on the left); your most recent HgbA1C is shown on the right. Note that lower numbers are better. Keep a regular sleep schedule Lifestyle Emily Hyman MD Note: This is an individualized lifestyle [...] filedocumented in this encounter Visit Diagnoses Diagnosis Chest pain, unspecified type Essential hypertension Unspecified essential hypertension Dyslipidemia Other and unspecified hyperlipidemia Other specified hypothyroidism documented in this encounter Insurance Payer Benefit Plan / Subscriber ID Effective Dates Phone Address Type Group MEDICARE MEDICARE PART A & xxxxxxxxxxx 2016-Present Medicare B [place] [employer] [facility] xxxxxxxxx 2016-Present [place] Guarantor Name Account Type Relation to Date of Phone Billing Patient Address Lupis Cline Personal/Family 1950 [address] (Home) [place] [phone] [place] [address] (Work) documented as of this encounter
[2019-05-22 02:26] LABS: TSH (Thyroid Stimulating Horm) 13.34 mcIU/mL (0.34-5.60)
[2019-05-22 02:58] LABS: Urine Appearance Cloudy; Urine Bilirubin Negative (Negative); Urine Blood Negative (Negative); Urine Color Yellow; Urine Glucose Negative (Negative); Urine Ketones Trace (Negative); Urine Nitrite Negative (Negative); Urine Protein Negative (Negative); Urine Specific Gravity 1.014 (1.010-1.030); Urine Urobilinogen Negative (Negative)
[2019-05-22] MEDS ORDERED: Ondansetron ODT TAB* 4 MG SL ONE (04:03)
[2019-05-22 04:53] VITALS: BP 127/94
== END 2019-05-22 04:53 | disposition home or self-care (01) ==
LOC: ED 23:59
DX: R04.0 Epistaxis (principal); R55 Syncope and collapse; R11.0 Nausea; S00.531A Contusion of lip, initial encounter; S05.12XA Contusion of eyeball and orbital tissues, left eye, initial encounter; W01.0XXA Fall on same level from slipping, tripping and stumbling without subsequent striking against object, initial encounter; Y92.9 Unspecified place or not applicable; R00.1 Bradycardia, unspecified; E07.9 Disorder of thyroid, unspecified; I10 Essential (primary) hypertension; Z79.890 Hormone replacement therapy; Z79.899 Other long term (current) drug therapy; Z88.5 Allergy status to narcotic agent
CPT/HCPCS: 36415; 70450; 80053; 80320; 81003; 83605; 83735; 84443; 84484; 85025; 85610; 93005; 99283; A9270-GY; G0480